=== PATIENT | male | born 1950 | race African-American/Black ===

== ENCOUNTER → 2016-08-15 | Outpatient (CLI) | payer MEDICARE ==
[~2016-08-15] MED LIST: ACTHAR; ALTE2VIA PO; AMIO200T7 PO; AMLO5TAB2 PO; AMOX1TAB64 PO; APIX5TAB PO; ASPI-496 PO; ATOR20TA9 PO; CALC-35 PO; CARV3.122 PO; CEPH-376 PO; CLIN300C93 PO; DIAZ5TAB PO; DICL100G8 TP; ERGO500017 PO; FERR325T20 PO; FOLI-17 PO; FURO-92 PO; GABA-827 PO; GABA100C8 PO; GABA800T2 PO; GLYB2.5T2 PO; GLYB5TAB3 PO; INSU100C SQ; INSU100I18 SQ-INSULIN; INSU100I28 SQ-INSULIN; INSU100V8 SQ; IRON100V HE; LACT10SO28 PO; LEVO75TA5 PO; LIDO700A30 TP; LISI5TAB7 PO; MECL-76 PO; METO25TA91 PO; OMEP-110 PO; OXYC10TA32 PO; OXYC10TA6 PO; OXYC15TA PO; OXYC20TA42 PO; OXYC5TAB3 PO; POLY17PO5 PO; POTA10TA90 PO; POTA20TA6 PO; RENAPLEX PO; SEVE800T PO; SEVE800T8 PO; SIMV20TA PO; SOFO400T PO; TAMS0.4C2 PO; TRAM100T2 PO; TRAZ50TA18 PO; TYLENOL PO; VITAMIN C PO; WARF2.5T73 PO-COUM; WARF5TAB PO; WARF5TAB7 PO; WARF7.5T6 PO; ZINC220C5 PO; [UNRECOGNIZED DRUG - CODE]; [UNRECOGNIZED DRUG - CODE] PO
== END | disposition home or self-care (01) ==
LOC: WOUND 08:30
PROVIDERS: ATTEND Podiatrist Foot & Ankle Surgery
DX: E11.621 Type 2 diabetes mellitus with foot ulcer (principal); L97.511 Non-pressure chronic ulcer of other part of right foot limited to breakdown of skin; L97.411 Non-pressure chronic ulcer of right heel and midfoot limited to breakdown of skin; L97.811 Non-pressure chronic ulcer of other part of right lower leg limited to breakdown of skin; I87.321 Chronic venous hypertension (idiopathic) with inflammation of right lower extremity; E11.622 Type 2 diabetes mellitus with other skin ulcer; L97.821 Non-pressure chronic ulcer of other part of left lower leg limited to breakdown of skin; E11.69 Type 2 diabetes mellitus with other specified complication; M86.671 Other chronic osteomyelitis, right ankle and foot; E78.5 Hyperlipidemia, unspecified; E11.40 Type 2 diabetes mellitus with diabetic neuropathy, unspecified; E03.9 Hypothyroidism, unspecified; B19.20 Unspecified viral hepatitis C without hepatic coma; Z87.891 Personal history of nicotine dependence
CPT/HCPCS: 97597; 97598; G0463; WOU0463

== ENCOUNTER → 2016-08-22 | Outpatient (CLI) | payer MEDICARE | END | disposition home or self-care (01) | LOC: WOUND 10:30 | PROVIDERS: ATTEND Podiatrist Foot & Ankle Surgery | DX: E11.621 Type 2 diabetes mellitus with foot ulcer (principal); I87.321 Chronic venous hypertension (idiopathic) with inflammation of right lower extremity; L97.421 Non-pressure chronic ulcer of left heel and midfoot limited to breakdown of skin; L97.411 Non-pressure chronic ulcer of right heel and midfoot limited to breakdown of skin; M86.671 Other chronic osteomyelitis, right ankle and foot; E11.69 Type 2 diabetes mellitus with other specified complication; E11.40 Type 2 diabetes mellitus with diabetic neuropathy, unspecified; Z86.19 Personal history of other infectious and parasitic diseases; E78.5 Hyperlipidemia, unspecified; E03.9 Hypothyroidism, unspecified; Z87.891 Personal history of nicotine dependence | CPT/HCPCS: 11043; 97597; 97598 ==